=== PATIENT | male | born 1950 | race Two or more races ===

== ENCOUNTER → 2017-01-08 | Outpatient (REF) | payer OTHER ==
[2017-01-08 14:05] LABS: CALCIUM OXALATE CRYSTALS LARGE
== END ==
LOC: M SMT 13:28
PROVIDERS: ATTEND Nurse Practitioner Women's Health
DX: R97.20 Elevated prostate specific antigen [PSA] (principal)

== ENCOUNTER → 2017-02-12 | Outpatient (REF) | payer OTHER | LOC: EEVIPCON 12:52 → M LAB REF 12:52 | PROVIDERS: ATTEND Urology | DX: R97.20 Elevated prostate specific antigen [PSA] (principal) ==

== ENCOUNTER → 2017-04-30 | Outpatient (CLI) | payer OTHER ==
--- NOTE | 2017-04-30 13:00 | REP ---
Prostate sonography: History: Elevated PSA Sonographic findings: Trans rectal prostate sonography demonstrates unremarkable seminal vesicles. Prostate gland is heterogeneously enlarged with calcifications and cystic changes noted. Glandular dimensions are measured at 4.8 x 4.4 x 5.7 cm with a calculated glandular volume of 62.3 ml. There is a 0.5 cm nodule on the right side of the prostate. Transrectal sonographic guidance provided to Dr. Hughes who performed trans rectal ultrasound guided needle biopsy procedure . Signed by Mack Elias MD 04/30/2017 12:51 P
== END ==
LOC: M SMT PRO 08:16
PROVIDERS: ATTEND Urology
DX: R97.20 Elevated prostate specific antigen [PSA] (principal)
CPT/HCPCS: 76872; 76942; G0416

== ENCOUNTER → 2017-07-30 | Outpatient (CLI) | payer MEDICARE, OTHER ==
[2017-07-31 14:13] LABS: PSA % FREE 22.5 % (.); PSA FREE 1.08 ng/mL; PSA TOTAL 4.8 ng/mL (0.0-4.0)
== END ==
LOC: M SMT 09:03
DX: N41.0 Acute prostatitis (principal)
CPT/HCPCS: 84154

== ENCOUNTER → 2018-08-01 | Outpatient (CLI) | payer MEDICARE | LOC: M SMT 11:03 | PROVIDERS: ATTEND Nurse Practitioner Women's Health | DX: R97.20 Elevated prostate specific antigen [PSA] (principal) ==

== ENCOUNTER → 2019-02-10 | Outpatient (CLI) | payer MEDICARE ==
[2019-02-11 14:25] LABS: PSA TOTAL 2.8 ng/mL (0.0-4.0)
== END ==
LOC: M SMT 08:23
PROVIDERS: ATTEND Nurse Practitioner Women's Health
DX: R97.20 Elevated prostate specific antigen [PSA] (principal)

== ENCOUNTER → 2019-03-06 | Outpatient (REF) | LOC: M LAB LCGH 14:54 | PROVIDERS: ATTEND Surgery | DX: D12.3 Benign neoplasm of transverse colon (principal) ==

== ENCOUNTER → 2019-08-14 | Outpatient (REF) | payer MEDICARE ==
[2019-08-15 14:07] LABS: PSA TOTAL 2.8 ng/mL (0.0-4.0)
== END ==
LOC: M LABSMT 08:29
PROVIDERS: ATTEND Nurse Practitioner Women's Health
DX: Z12.5 Encounter for screening for malignant neoplasm of prostate (principal); N41.0 Acute prostatitis

== ENCOUNTER → 2020-02-15 | Outpatient (CLI) | payer MEDICARE | LOC: M PLALAB 08:36 | PROVIDERS: ATTEND Nurse Practitioner Women's Health | DX: R97.20 Elevated prostate specific antigen [PSA] (principal) ==

== ENCOUNTER 2020-11-12 13:19 | Observation (INO) | payer MEDICARE ==
[~2020-11-12] VITALS: Ht 177.8 cm; Wt 87.5 kg
[2020-11-12] MEDS ORDERED: FINA5TAB2 PO (13:33)
[2020-11-12] MEDS ORDERED: ATOR40TA75 PO (13:33)
[2020-11-12] MEDS ORDERED: ZYLO300T6 PO (13:33)
[2020-11-12] MEDS ORDERED: TAMS1CAP17 PO (13:33)
[2020-11-12] MEDS ORDERED: LISI20TA33 PO (13:33)
--- NOTE | 2020-11-12 14:16 | REP ---
INDICATION: DYSPNEA/COUGH. COMPARISON: None. TECHNIQUE: Portable FINDINGS: The technique utilized in obtaining the radiograph has magnified the cardiac silhouette and accentuated the interstitial markings. There are numerable pulmonary nodules of various sizes from under 1 cm to over 3 cm. These are too numerous to count or individually assess. The heart is not enlarged. There is bilateral CP angle blunting. The osseous structures are within normal limits. IMPRESSION: Numerable pulmonary nodules. Certainly pulmonary metastasis is a concern knowing that there is a differential diagnosis for multiple pulmonary nodules. This needs to be correlated clinically. Possible small bilateral pleural effusions. I have no priors for comparison. <Electronically signed by Abdoulaye Mckeon > 11/12/20 [id number]
[2020-11-12 14:45] LABS: ABG BASE EXCESS 2.5 (-2.0-2.0); ABG HCO3 24.9 MEQ/L (22.0-26.0); ABG O2 SATURATION 94.6 % (95.0-99.0); ABG PARTIAL PRESSURE O2 68.7 mmHg (75.0-100.0); ABG STANDARD HCO3 26.6 MEQ/L (22.0-26.0); ABG TOTAL CO2 25.9 MEQ/L (23.0-31.0); ABG pH (ARTERIAL) 7.509 UNITS (7.350-7.450)
[2020-11-12 15:03] LABS: BASO % 0.2 % (0.0-1.0); EOS % 0.1 % (0.0-3.0); HEMATOCRIT 40.9 % (42.0-52.0); HEMOGLOBIN 13.1 g/dl (13.5-17.5); LYMPH # 0.7 10^3/uL (1.5-5.0); LYMPH % 3.4 % (24.0-44.0); MEAN CORPUSCULAR HEMOGLOBIN 29.4 pg (27.0-33.0); MEAN CORPUSCULAR VOLUME 91.7 fl (80.0-96.0); MONO # 0.8 10^3/uL (0.0-0.8); MONO % 4.1 % (2.0-8.0); NEUTROPHILS # 17.4 10^3/uL (1.5-8.5); NEUTROPHILS % 90.7 % (36.0-66.0); PLATELET COUNT, AUTOMATED 232 10^3/uL (150-450); RED BLOOD COUNT 4.46 10^6/uL (4.30-6.10); WHITE BLOOD COUNT 19.2 10^3/uL (4.0-10.0)
--- NOTE | 2020-11-12 15:17 | REP ---
INDICATION: edema r/o DVT COMPARISON: None. TECHNIQUE: Real time compression and duplex Doppler interrogation of the bilateral lower extremity deep venous system is performed. Compression ultrasound is performed of the bilateral peroneal and posterior tibial veins. FINDINGS: Bilaterally, the common femoral, superficial femoral and popliteal veins are fully compressible with transducer pressure and demonstrate normal spontaneous and phasic flow, without evidence of deep venous thrombosis. No thrombus is seen in the bilateral visualized portions of the peroneal and posterior tibial veins. The peroneal veins are not well visualized due to patient body habitus. IMPRESSION: No evidence of deep venous thrombosis of the bilateral lower extremity femoral popliteal venous system. <Electronically signed by Fabien Kirkpatrick > 11/12/20 [id number]
[2020-11-12 15:23] LABS: BLOOD UREA NITROGEN 16 MG/DL (7-18); CALCIUM LEVEL 9.2 MG/DL (8.8-10.2); CARBON DIOXIDE LEVEL 30 MEQ/L (21-32); CHLORIDE LEVEL 106 MEQ/L (98-107); CK-MB VALUE MASS < 1.0 NG/ML (<3.6); CPK CREATINE PHOSPHOKINASE 34 U/L (39-308); CREATININE FOR GFR 0.93 MG/DL (0.70-1.30); GLOMERULAR FILTRATION RATE > 60.0 (>49); GLUCOSE, FASTING 120 MG/DL (70-100); MB/CK RELATIVE INDEX 2.94 (< OR =4); POTASSIUM SERUM 3.2 MEQ/L (3.5-5.1); SODIUM LEVEL 141 MEQ/L (136-145); TROPONIN I < 0.02 NG/ML (< 0.10)
[2020-11-12 15:33] LABS: ALBUMIN 2.7 GM/DL (3.2-5.2); BILIRUBIN,DIRECT 0.2 MG/DL (0.0-0.2); BILIRUBIN,TOTAL 0.4 MG/DL (0.2-1.0); THYROID STIMULATING HORMONE 8.42 uIU/ML (0.358-3.740); TOTAL PROTEIN 6.3 GM/DL (6.4-8.2)
[2020-11-12] MEDS ORDERED: ISOVUE-370 76% 100ML VIAL As Ordered ONE (16:13)
--- NOTE | 2020-11-12 17:07 | REP ---
INDICATION: SOB COMPARISON: None. TECHNIQUE: CT angiography of the chest attention pulmonary arteries after the intravenous administration of 75 cc of Isovue 370. FINDINGS: There is excellent visualization of the pulmonary arterial vasculature. There are no focal filling defects present that would be considered consistent with acute pulmonary emboli. There is bilateral hilar adenopathy. There is mediastinal adenopathy. There is small bilateral pleural effusions. There is a small pericardial effusion. The imaged upper abdomen is within normal limits. The imaged osseous structures are within normal limits. Evaluation of the lung tom shows numerous pulmonary nodules of various sizes from under 1 cm up to slightly larger than 3 cm. IMPRESSION: 1. There is no evidence of an acute pulmonary embolus. 2. Mediastinal and hilar adenopathy. 3. Numerous noncalcified pulmonary nodules as described above. Metastatic versus non malignant neoplastic disease. Since there is a vast differential diagnosis for multiple pulmonary nodules clinical correlation is necessary. <Electronically signed by Abdoulaye Mckeon > 11/12/20 [id number]
[2020-11-12] MEDS ORDERED: POTASSIUM CHLORIDE 10 MEQ SR TABLET PO ONE (17:30)
[2020-11-12] MEDS ORDERED: LABETALOL 100MG/20ML VIAL IV STA (17:40)
[2020-11-12] MEDS ORDERED: MOM 30ML SUSPENSION UDC PO PRN (19:00)
[2020-11-12] MEDS ORDERED: MAALOX 30 ML SUSP *UDC PO PRN (19:00)
[2020-11-12] MEDS ORDERED: ACETAMINOPHEN TAB 650MG DOSE (2X325MG) PO PRN (19:00)
--- NOTE | 2020-11-12 19:28 | HPEPDOC ---
[facility] Medical History & Physical Date of Admission Nov 12, 2020 Date of Service: Nov 12, 2020 Attending Physician: SARABJIT TORRES History and Physical CHIEF COMPLAINT: Shortness of breath HISTORY OF PRESENT ILLNESS: Mr. Larsen is a 70-year-old male who presents to the ER this evening with complaints of worsening shortness of breath over the left 2-1/2 weeks. It has been much worse over the last 2 nights. He also reports a history of dry, nonproductive cough for about 1-1/2 months. He has a history of melanoma with metastasis to lung, bone and liver. He was originally diagnosed with melanoma on his back in December of last year. He had the area removed but had difficulty healing. It sounds like care might have been delayed because of cocaine. He was eventually taken back to surgery in July for significant debridement of this area. He was considered cancer free with lymph nodes negative for metastasis at that time. However, he became increasingly short of breath and was seen at an outside facility ER. He followed up with [place] for continued evaluation and was found to have the metastasis. He was referred to [place] and now has an appointment scheduled with [facility] for repeat biopsy and possible treatment with immunotherapy. He was supposed to have had that appointment yesterday but it was canceled as his insurance has not yet approved for biopsy and treatment. On initial evaluation this evening. He was noted to have an O2 sat of 95% on room air, but PO2 was 68%. His PCO2 was 32. He was slightly alkalotic with pH of 7.5. . He also had elevated blood pressure 179/97 and was given a dose of labetalol in the ER.. Labs were significant for an elevated white count at 19.2. Potassium was decreased at 3.2 and he was given 40 mEq potassium in the ER. BUN/creatinine were within normal limits. He did have elevation of BNP at 1232. Protein and albumin were decreased at 6.3 and 2.7. His TSH was elevated at 8.4 with no history of thyroid disease. He was negative for cuff at 19 and has been fully vaccinated. He was positive for human rhinovirus/enterovirus. Bilateral lower extremity ultrasound was negative and was done because the patient complained of swelling in the right lower extremity. CT of the chest showed no evidence of pulmonary embolus but did show mediastinal and hilar adenopathy. There are also numerous noncalcified pulmonary nodules with known metastasis. Chest x-ray also showed innumerable pulmonary nodules and possible small bilateral pleural effusions. The ER provider, Dr. Richard, spoke with [place] [facility]. They apparently recommended admission with echocardiogram. PAST MEDICAL HISTORY: 1. Benign prostatic hypertrophy. 2. Hypertension. 3. Hyperlipidemia. 4. Kidney stone. 5. Gout. 6. Melanoma with known metastasis to lung, bone and liver. PAST SURGICAL HISTORY: 1. Left forearm surgery. 2. Removal of melanoma on the back. 3. Repeat debridement of melanoma on the back SOCIAL HISTORY: Tobacco use:, None ETOH:. Patient admits to drinking about 2 drinks a day but states it is not every day Illicit drug use: None Patient lives with: Patient lives alone FAMILY HISTORY: Patient's mother in her early 40s from breast cancer. His father was 74 and had a history of coronary artery disease and hypertension. REVIEW OF SYSTEMS: Complete 10 point review systems is negative except as noted above PHYSICAL EXAMINATION: Patient is seen in the ER, sitting Up on the stretcher. He is alert and oriented 3. HEENT is unremarkable. Neck supple without adenopathy. Lungs are clear to auscultation, but he does have a dry nonproductive cough. Heart regular rate and rhythm without murmur. Abdomen is obese, soft, nontender to percussion and palpation with bowel sounds positive. Extremities with good range of motion. Strength equal bilaterally. He does have 1+ pitting edema in the right lower extremity and trace edema in the left lower extremity. Pedal pulses positive. Skin is warm and dry. He has a large scar in the mid back with a small area of eschar at the center. There is no erythema, drainage or warmth. Nontender to touch. Neuro: Grossly intact. Psych: He is very pleasant and cooperative. ASSESSMENT AND PLAN: 1. Acute congestive heart failure with elevated BNP and bilateral pleural effusions. Will monitor intake and output closely. Check echocardiogram in the morning. Will give 1 dose of Lasix now. 2. Hypertension, essential. Continue home lisinopril and monitor with routine vital signs. Will adjust medications as needed based on trends. 3. Abnormal TSH with no history of thyroid disease. Will check free T4. Will start the patient on hormone replacement. He will need to follow-up with primary care provider in 4-6 weeks for continued management. 4. Shortness of breath with acute rhinovirus/enterovirus. Continue supportive care. Oxygen available as needed and will titrate to keep sats greater than 92%. Will add Tessalon Perles. 5. Hypokalemia. Patient received 40 mEq in the ER. Recheck labs in the morning. 6. Hyperlipidemia. Continue statin. 7. Gout. Will continue home allopurinol. 8. Benign prostatic hypertrophy. Continue Flomax and Proscar. Monitor intake and output. 9. DVT prophylaxis. Will add Lovenox. CODE STATUS: CODE STATUS was discussed with the patient. He desires to be co nsidered full code. He states his children, ankle, and Khris, would act as his circuits. If you are unable to make his decisions. Patient is considered high risk for further deterioration including worsening hypoxia or respiratory failure. He is admitted for close observation and further evaluation and expected to remain at least one midnight. Vital Signs Vital Signs Date Time Temp Pulse Resp B/P (MAP) Pulse Ox O2 Delivery O2 Flow Rate FiO2 11/12/20 19:00 100 151/91 (111) 94 11/12/20 13:20 98.2 22 Room Air Laboratory Data Labs 24H Laboratory Tests 2 11/12/20 14:30: Immature Granulocyte % (Auto) 1.5, Neutrophils (%) (Auto) 90.7H, Lymphocytes (%) (Auto) 3.4L, Monocytes (%) (Auto) 4.1, Eosinophils (%) (Auto) 0.1, Basophils (%) (Auto) 0.2, Neutrophils # (Auto) 17.4H, Lymphocytes # (Auto) 0.7L, Monocytes # (Auto) 0.8, Eosinophils # (Auto) 0.0, Basophils # (Auto) 0.0, Nucleated Red Blood Cells % (auto) 0.0, Blood Gas Bicarbonate Standard 26.6H, Arterial Blood pH 7.509H, Arterial Blood Partial Pressure CO2 32.0L, Arterial Blood Partial Pressure O2 68.7L, Arterial Blood Total CO2 25.9, Arterial Blood HCO3 24.9, Arterial Blood Base Excess 2.5H, Arterial Blood Oxygen Saturation 94.6L, Total Bilirubin 0.4, Direct Bilirubin 0.2, Aspartate Amino Transf (AST/SGOT) 28, Alanine Aminotransferase (ALT/SGPT) 38, Alkaline Phosphatase 157H, JE-Yjm-A-Type Natriuretic Peptide 1232H, Total Protein 6.3L, Albumin 2.7L, Albumin/Globulin Ratio 0.8, Thyroid Stimulating Hormone (TSH) 8.420H 11/12/20 14:35: Anion Gap 5L, Glomerular Filtration Rate > 60.0, Calcium Level 9.2, Total Creatine Kinase 34L, Creatine Kinase MB < 1.0, Creatine Kinase MB Relative Index 2.94, Troponin I < 0.02 CBC/BMP Laboratory Tests 11/12/20 14:30 11/12/20 14:35 Microbiology Microbiology 11/12/20 Blood Culture, Received Pending 11/12/20 Respiratory Virus Panel (PCR) ([facility]) - Final, Complete Human Rhinovirus/Enterovirus 11/12/20 Blood Culture, Received Pending Home Medications Scheduled Allopurinol (Zyloprim) 300 Mg Tablet, 300 MG PO DAILY Atorvastatin Calcium (Atorvastatin Calcium) 40 Mg Tablet, 40 MG PO QHS Finasteride (Finasteride) 5 Mg Tablet, 5 MG PO DAILY Lisinopril (Lisinopril) 20 Mg Tablet, 20 MG PO DAILY Tamsulosin Hcl (Tamsulosin HCl) 0.4 Mg Capsule, 0.4 MG PO DAILY Allergies Coded Allergies: sulfamethoxazole (Verified Adverse Reaction, Mild, dizzy, 11/12/20) trimethoprim (Verified Adverse Reaction, Mild, dizzy, 11/12/20) A-FIB/CHADSVASC A-FIB History Current/History of A-Fib/PAF?: No Current PO Anticoag Therapy: No Age/Risk Factor Scoring CHADSVASC: CHADSVASC Response (Comments) Value Age Risk Factor Age < 65 years old 0 Gender Risk Factor Male 0 Hx of CHF No 0 Hx of HTN Yes 1 Hx of Stroke/TIA/or VTE No 0 Hx of Diabetes No 0 Hx of Vascular Disease No 0 Total 1 Treatment Treatment ordered: NONE SARABJIT TORRES Nov 12, 2020 19:28
[2020-11-12] MEDS ORDERED: guaiFENesin SYRUP 200 MG/10 ML UDC PO PRN (19:30)
[2020-11-12] MEDS ORDERED: BENZONATATE 100 MG CAP PO PRN (19:30)
[2020-11-12] MEDS ORDERED: FUROSEMIDE 40MG/4ML VIAL (J1940) IV ONE (20:00)
[2020-11-12 20:24] LABS: FREE T4 0.87 NG/DL (0.76-1.46)
[2020-11-12 20:35] VITALS: BP 172/88
[2020-11-12 20:48] LABS: MAGNESIUM LEVEL 2.3 MG/DL (1.8-2.4)
[2020-11-12] MEDS ORDERED: ATORVASTATIN 20 MG TAB PO SCH (21:00)
--- NOTE | 2020-11-12 21:09 | ECGEPIP ---
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
[2020-11-12 21:21] VITALS: BP 139/83
[2020-11-12] MEDS ORDERED: SLF 3 ML SYR IV PRN (21:25)
[2020-11-12] MEDS: SLF 3 ML SYR IV SCH (21:52)
[2020-11-13 00:43] VITALS: BP 143/81
[2020-11-13] MEDS: POTASSIUM CHLORIDE 10 MEQ SR TABLET PO SCH ×2 (03:10→06:24)
[2020-11-13 04:00] VITALS: BP 166/92
[2020-11-13 05:37] LABS: HEMATOCRIT 36.7 % (42.0-52.0); HEMOGLOBIN 11.8 g/dl (13.5-17.5); MEAN CORPUSCULAR HEMOGLOBIN 29.3 pg (27.0-33.0); MEAN CORPUSCULAR HGB CONC 32.2 g/dl (32.0-36.5); MEAN CORPUSCULAR VOLUME 91.1 fl (80.0-96.0); PLATELET COUNT, AUTOMATED 228 10^3/uL (150-450); RED BLOOD COUNT 4.03 10^6/uL (4.30-6.10)
[2020-11-13] MEDS ORDERED: LEVOTHYROXINE 50MCG TABLET (0.05MG) PO SCH (06:00)
[2020-11-13 06:02] LABS: ALBUMIN 2.2 GM/DL (3.2-5.2); ALT/SGPT 31 U/L (12-78); BILIRUBIN,TOTAL 0.4 MG/DL (0.2-1.0); BLOOD UREA NITROGEN 18 MG/DL (7-18); CALCIUM LEVEL 8.1 MG/DL (8.8-10.2); CARBON DIOXIDE LEVEL 29 MEQ/L (21-32); CHLORIDE LEVEL 106 MEQ/L (98-107); CREATININE FOR GFR 1.04 MG/DL (0.70-1.30); GLOMERULAR FILTRATION RATE > 60.0 (>49); GLUCOSE, FASTING 125 MG/DL (70-100); POTASSIUM SERUM 3.5 MEQ/L (3.5-5.1); SODIUM LEVEL 141 MEQ/L (136-145); TOTAL PROTEIN 5.6 GM/DL (6.4-8.2)
[2020-11-13] MEDS: SLF 3 ML SYR IV SCH ×2 (06:24→13:59)
[2020-11-13 07:30] VITALS: BP 158/84
[2020-11-13] MEDS ORDERED: allopurinoL 300 MG TAB PO SCH (09:00)
[2020-11-13] MEDS ORDERED: TAMSULOSIN 0.4 MG CAP PO SCH (09:00)
[2020-11-13] MEDS ORDERED: FINASTERIDE 5 MG TAB PO SCH (09:00)
[2020-11-13] MEDS ORDERED: ENOXAPARIN 40MG/0.4ML SYRINGE (J1650 PER 10MG) SC SCH (09:00)
[2020-11-13 09:23] VITALS: BP 158/84
--- NOTE | 2020-11-13 10:06 | IPNPDOC ---
Text Note Date of Service The patient was seen on 11/13/20. NOTE Subjective: Patient was seen and examined this morning at bedside. He tells me he knows about his metastatic melanoma and it has progressed to the lungs and his liver he is following up with an oncologist at [facility] and is scheduled to follow-up with another oncologist closer to his home this week. He tells me his breathing feels better he is less short of breath has been able to ambulate around his room without feeling shortness of breath. He denies any fevers or chills. I discussed with him that his dyspnea was likely related to a combination of factors including his lung cancer, rhinovirus, and possibly a small component of CHF. Objective: Constitutional: Awake and alert, in no apparent distress ENT: Sclera are clear. Mucosa is moist. Respiratory: Lungs CTA bilaterally. No respiratory distress. No use of accessory muscles. Saturating well on room air Cardiovascular: RRR S1 and S2 are normal, no murmur Gastrointestinal: Abdomen is soft, non distended, non tender, BS present. Musculoskeletal: Trace bilateral pedal edema Neurologic: No focal neurological deficit. Mental Status: A&O x3, normal affect Skin: No visible rashes. Healing scar upper thoracic site of his melanoma excision. Assessment Shortness of breath likely multifactorial; rhinovirus +/- lung tumors +/- fluid overload Metastatic cancer plan Shortness of breath likely related to primarily rhinovirus infection in the setting of lung cancer (likely metastatic from melanoma) as well as mild fluid overload. He has no prior history of congestive heart failure and does not take diuretics at home. An echo was performed at bedside this morning and he should follow-up on the results with his PCP. He'll be discharged on a 1 month supply for diuresis for better optimization. With regards to his metastatic melanoma he has established care at [facility] in [place] with an oncologist and will be establishing care at an affiliated site close to his home this week. He saturating well on room air management of the rhinovirus infection supportive management. [facility] PIPER, I+O [facility] PIPER, I+O Laboratory Tests 11/12/20 14:30 11/12/20 14:35 11/13/20 00:32 11/13/20 05:15 Vital Signs Date Time Temp Pulse Resp B/P (MAP) Pulse Ox O2 Delivery O2 Flow Rate FiO2 11/13/20 09:23 158/84 11/13/20 07:30 98.3 98 18 93 Room Air I&O- Last 24 Hours up to 6 AM 11/13/20 06:00 Output Total 600 ml Balance -600 ml PENG CHASE MD Nov 13, 2020 10:06
[2020-11-13] MEDS ORDERED: LASI20TA3 PO (10:09)
[2020-11-13] MEDS ORDERED: BENZ-18 PO (10:09)
[2020-11-13] MEDS ORDERED: ACET1TAB55 PO (10:09)
--- NOTE | 2020-11-14 12:35 | ECHO ---
ECHOCARDIOGRAM DATE OF PROCEDURE: 11/13/2020 Age: 70 Gender: Height: Weight: REFERRING PROVIDER: Devika Ledesma MD. PATIENT LOCATION: Room 3215. REASON FOR THE TESTING: Shortness of breath. 2D MEASUREMENTS: IVS 1.0 cm LV 5.2 cm LVPW 0.9 cm LA 3.5 cm Aorta 3.3 cm DOPPLER MEASUREMENT Peak velocity across the LVOT 0.9 m/s 2D COMMENTS: 1. Normal left ventricular size, wall thickness, and normal global left ventricular systolic function. The estimated left ventricular systolic ejection fraction is 60 to 65%. 2. Normal left atrium. Normal right atrium and right ventricle. 3. The atrial septum appeared to be normal without evidence of defect or shunt. 4. Normal aortic root. 5. A small pericardial effusion was noted, no evidence of cardiac tamponade. 6. Mildly calcified aortic valve with normal leaflet excursion. Mildly calcified mitral annulus with normal anterior mitral valve leaflet motion. Normal tricuspid valve. The pulmonic valve was not well visualized as well as the proximal pulmonary artery branches. 7. The inferior vena cava was not visualized. DOPPLER: No significant valvular abnormalities detected but trace aortic regurgitation and trace tricuspid regurgitation. Pulmonary artery systolic pressure is probably normal. IMPRESSION: 1. Normal global left ventricular systolic function. Not mentioned above, there are findings suggestive of grade 1 left ventricular diastolic dysfunction manifested by abnormal relaxation. 2. Aortic valve sclerosis with trace aortic regurgitation. 3. A small pericardial effusion was noted, no evidence of cardiac tamponade.
== END 2020-11-13 15:02 | disposition home or self-care (01) ==
LOC: M ED 13:19 → M ED INP 13:20 → ENRESERV 19:30 → M PCU 20:35
PROVIDERS: ADMIT Internal Medicine; ATTEND Internal Medicine
DX: I50.9 Heart failure, unspecified (principal); R79.89 Other specified abnormal findings of blood chemistry; J90 Pleural effusion, not elsewhere classified; I31.3 Pericardial effusion (noninflammatory); I11.0 Hypertensive heart disease with heart failure; R94.5 Abnormal results of liver function studies; R06.02 Shortness of breath; E87.6 Hypokalemia; E78.5 Hyperlipidemia, unspecified; M79.89 Other specified soft tissue disorders; E87.70 Fluid overload, unspecified; M10.9 Gout, unspecified; N40.0 Benign prostatic hyperplasia without lower urinary tract symptoms; C79.51 Secondary malignant neoplasm of bone; C78.7 Secondary malignant neoplasm of liver and intrahepatic bile duct; C78.00 Secondary malignant neoplasm of unspecified lung; Z85.820 Personal history of malignant melanoma of skin; Z79.899 Other long term (current) drug therapy; Z88.2 Allergy status to sulfonamides
CPT/HCPCS: 36415; 71045; 71275; 80048; 80053; 80076; 82550; 82553; 82803; 83605; 83735; 83880; 84132; 84439; 84443; 84484; 85025; 85027; 87040; 87798; 93005; 93041; 93306; 93970; 96372; 96374; 96375; 99285; G0378; J1650; J1940; Q9967

== ENCOUNTER 2020-11-24 14:25 | Emergency (ER) | payer MEDICARE ==
[~2020-11-24] VITALS: Ht 177.8 cm; Wt 89.3 kg
[~2020-11-24 14:25] MED LIST: ACET1TAB55 PO; ATOR40TA75 PO; BENZ-18 PO; FINA5TAB2 PO; LASI20TA3 PO; LISI20TA33 PO; TAMS1CAP17 PO; ZYLO300T6 PO
[2020-11-24] MEDS ORDERED: POTA10CA32 (14:33)
[2020-11-24] MEDS ORDERED: HYDR-3713 (14:33)
[2020-11-24 15:09] LABS: VENOUS BASE EXCESS 4.6 (-2.0-2.0); VENOUS HCO3 27.1 MEQ/L (23.0-27.0); VENOUS O2 SATURATION 97.1 % (60.0-80.0); VENOUS PARTIAL PRESSURE CO2 33.5 mmHg (38.0-50.0); VENOUS PH 7.525 UNITS (7.330-7.430); VENOUS STANDARD HCO3 28.6 MEQ/L; VENOUS TOTAL CO2 28.1 MEQ/L (24.0-28.0)
--- NOTE | 2020-11-24 15:17 | REP ---
INDICATION: DYSPNEA/COUGH COMPARISON: 11/12/2020 TECHNIQUE: Portable AP view of the chest FINDINGS: Diffuse bilateral infiltrates along with scattered rounded pulmonary mass lesions and moderate pleural effusions are similar to prior examination. IMPRESSION: No significant change from prior examination. Diffuse bilateral airspace disease, pleural effusions, and scattered metastatic mass lesions. <Electronically signed by Jeff Boles > 11/24/20 [id number]
[2020-11-24 15:42] LABS: ALBUMIN 2.2 GM/DL (3.2-5.2); ALT/SGPT 23 U/L (12-78); BILIRUBIN,DIRECT 0.2 MG/DL (0.0-0.2); BILIRUBIN,TOTAL 0.4 MG/DL (0.2-1.0); BLOOD UREA NITROGEN 22 MG/DL (7-18); CALCIUM LEVEL 7.9 MG/DL (8.8-10.2); CARBON DIOXIDE LEVEL 28 MEQ/L (21-32); CHLORIDE LEVEL 103 MEQ/L (98-107); CK-MB VALUE MASS < 1.0 NG/ML (<3.6); CPK CREATINE PHOSPHOKINASE 30 U/L (39-308); CREATININE FOR GFR 0.94 MG/DL (0.70-1.30); GLOMERULAR FILTRATION RATE > 60.0 (>49); GLUCOSE, FASTING 128 MG/DL (70-100); MB/CK RELATIVE INDEX 3.33 (< OR =4); POTASSIUM SERUM 3.8 MEQ/L (3.5-5.1); SODIUM LEVEL 141 MEQ/L (136-145); TOTAL PROTEIN 5.9 GM/DL (6.4-8.2); TROPONIN I < 0.02 NG/ML (< 0.10)
[2020-11-24 15:50] LABS: RSV AMPLIFICATION NEGATIVE (NEGATIVE)
[2020-11-24 16:18] LABS: BASO % 0.2 % (0.0-1.0); HEMATOCRIT 39.1 % (42.0-52.0); HEMOGLOBIN 12.1 g/dl (13.5-17.5); LYMPH # 0.9 10^3/uL (1.5-5.0); LYMPH % 4.4 % (24.0-44.0); MEAN CORPUSCULAR HEMOGLOBIN 28.1 pg (27.0-33.0); MEAN CORPUSCULAR HGB CONC 30.9 g/dl (32.0-36.5); MEAN CORPUSCULAR VOLUME 90.9 fl (80.0-96.0); MONO # 0.8 10^3/uL (0.0-0.8); MONO % 3.6 % (2.0-8.0); NEUTROPHILS # 19.1 10^3/uL (1.5-8.5); NEUTROPHILS % 89.9 % (36.0-66.0); PLATELET COUNT, AUTOMATED 169 10^3/uL (150-450); WHITE BLOOD COUNT 21.2 10^3/uL (4.0-10.0)
[2020-11-24 17:15] VITALS: BP 158/91
[2020-11-24] MEDS ORDERED: TUSS1CAP5 PO ×2 (17:19→17:23)
--- NOTE | 2020-11-24 21:17 | ECGEPIP ---
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
[2020-11-25] MEDS ORDERED: TESS100C PO (09:50)
== END 2020-11-24 17:42 | disposition home or self-care (01) ==
LOC: M ED 14:25
DX: R05 Cough (principal); R06.02 Shortness of breath; I10 Essential (primary) hypertension; E78.5 Hyperlipidemia, unspecified; C43.9 Malignant melanoma of skin, unspecified; C78.00 Secondary malignant neoplasm of unspecified lung; Z79.899 Other long term (current) drug therapy; Z88.2 Allergy status to sulfonamides; Z88.8 Allergy status to other drugs, medicaments and biological substances

== ENCOUNTER 2020-12-04 10:17 | Inpatient (IN) | payer MEDICARE ==
[~2020-12-04] VITALS: Ht 177.8 cm; Wt 89.1 kg
[~2020-12-04 10:17] MED LIST changes: +HYDR-3713; +POTA10CA32 PO; +TESS100C PO; +TUSS1CAP5 PO
[2020-12-04] MEDS ORDERED: FUROSEMIDE 40MG/4ML VIAL (J1940) IV ONE (12:05)
[2020-12-04 12:56] LABS: RSV AMPLIFICATION NEGATIVE (NEGATIVE)
[2020-12-04 13:07] LABS: BASO % 0.1 % (0.0-1.0); EOS % 0.1 % (0.0-3.0); HEMATOCRIT 34.6 % (42.0-52.0); LYMPH # 0.9 10^3/uL (1.5-5.0); LYMPH % 4.6 % (24.0-44.0); MEAN CORPUSCULAR HEMOGLOBIN 27.9 pg (27.0-33.0); MEAN CORPUSCULAR HGB CONC 31.8 g/dl (32.0-36.5); MEAN CORPUSCULAR VOLUME 87.8 fl (80.0-96.0); MONO # 0.8 10^3/uL (0.0-0.8); MONO % 4.1 % (2.0-8.0); NEUTROPHILS # 17.2 10^3/uL (1.5-8.5); NEUTROPHILS % 88.9 % (36.0-66.0); PLATELET COUNT, AUTOMATED 122 10^3/uL (150-450); RED BLOOD COUNT 3.94 10^6/uL (4.30-6.10); WHITE BLOOD COUNT 19.3 10^3/uL (4.0-10.0)
[2020-12-04 13:38] LABS: ALBUMIN 1.9 GM/DL (3.2-5.2); ALT/SGPT 17 U/L (12-78); BILIRUBIN,DIRECT 0.2 MG/DL (0.0-0.2); BILIRUBIN,TOTAL 0.5 MG/DL (0.2-1.0); BLOOD UREA NITROGEN 24 MG/DL (7-18); CALCIUM LEVEL 8.2 MG/DL (8.8-10.2); CARBON DIOXIDE LEVEL 27 MEQ/L (21-32); CHLORIDE LEVEL 105 MEQ/L (98-107); CK-MB VALUE MASS < 1.0 NG/ML (<3.6); CPK CREATINE PHOSPHOKINASE 24 U/L (39-308); CREATININE FOR GFR 0.97 MG/DL (0.70-1.30); FREE T4 0.75 NG/DL (0.76-1.46); GLOMERULAR FILTRATION RATE > 60.0 (>49); GLUCOSE, FASTING 119 MG/DL (70-100); MB/CK RELATIVE INDEX 4.17 (< OR =4); NT-PRO BNP 1784 PG/ML (<125); POTASSIUM SERUM 3.8 MEQ/L (3.5-5.1); SODIUM LEVEL 142 MEQ/L (136-145); TOTAL PROTEIN 5.9 GM/DL (6.4-8.2); TROPONIN I < 0.02 NG/ML (< 0.10)
[2020-12-04] MEDS ORDERED: TESS100C PO (14:11)
[2020-12-04] MEDS ORDERED: APAP500T10 PO (14:11)
[2020-12-04] MEDS ORDERED: ALLO10TA PO (14:11)
[2020-12-04] MEDS ORDERED: FURO20TA2 PO (14:11)
[2020-12-04] MEDS ORDERED: HOME MED LIST COMPLETE! XX SCH (14:15)
[2020-12-04] MEDS ORDERED: MAALOX 30 ML SUSP *UDC PO PRN (14:30)
[2020-12-04] MEDS ORDERED: BENZONATATE 100MG CAPSULE PO PRN (14:30)
[2020-12-04 16:15] LABS: APPEARANCE, BODY FLUID HAZY (CLEAR); ASCITES FL COLOR YELLOW (COLORLESS); SOURCE, BODY FLUID ASCITES; SPEC. GRAVITY BODY FLUIDS 1.016 (NOT ESTABLISHED)
[2020-12-04 16:29] LABS: SOURCE, BODY FLUID ALBUMIN ASCITES; SOURCE, BODY FLUID GLUCOSE ASCITES; SOURCE, BODY FLUID TOT PROTEIN ASCITES; TOTAL PROTEIN, BODY FLUID 2.1 G/DL (NOT ESTABLISHED)
[2020-12-04] MEDS ORDERED: cefTRIAXone SOD 1 GM in D5W MINI-BAG PLUS 50 ML IV SCH (18:00)
[2020-12-04] MEDS: TAMSULOSIN 0.4 MG CAP PO SCH (18:07)
[2020-12-04] MEDS: FINASTERIDE 5 MG TAB PO SCH (18:07)
[2020-12-04] MEDS: allopurinoL 100 MG TAB PO SCH (18:07)
[2020-12-04] MEDS ORDERED: FUROSEMIDE 40MG/4ML VIAL (J1940) IV SCH (20:00)
[2020-12-04] MEDS: POTASSIUM CHLORIDE 10MEQ SR TABLET PO SCH (21:21)
[2020-12-04] MEDS: ATORVASTATIN 20 MG TAB PO SCH (21:21)
[2020-12-05] VITALS (25 sets, daily range): BP systolic 88–160; BP diastolic 52–87; O2SAT 89–97
[2020-12-05] MEDS: ACETAMINOPHEN TAB 650MG DOSE (2X325MG) PO PRN ×4 (00:12→18:12)
[2020-12-05 06:19] LABS: HEMATOCRIT 33.5 % (42.0-52.0); HEMOGLOBIN 10.3 g/dl (13.5-17.5); MEAN CORPUSCULAR HEMOGLOBIN 27.5 pg (27.0-33.0); MEAN CORPUSCULAR HGB CONC 30.7 g/dl (32.0-36.5); MEAN CORPUSCULAR VOLUME 89.3 fl (80.0-96.0); PLATELET COUNT, AUTOMATED 113 10^3/uL (150-450); RED BLOOD COUNT 3.75 10^6/uL (4.30-6.10)
[2020-12-05 06:42] LABS: ALBUMIN 1.6 GM/DL (3.2-5.2); ALT/SGPT 13 U/L (12-78); BILIRUBIN,TOTAL 0.4 MG/DL (0.2-1.0); BLOOD UREA NITROGEN 25 MG/DL (7-18); CALCIUM LEVEL 8.1 MG/DL (8.8-10.2); CARBON DIOXIDE LEVEL 26 MEQ/L (21-32); CHLORIDE LEVEL 104 MEQ/L (98-107); CREATININE FOR GFR 1.14 MG/DL (0.70-1.30); GLOMERULAR FILTRATION RATE > 60.0 (>49); GLUCOSE, FASTING 106 MG/DL (70-100); MAGNESIUM LEVEL 1.9 MG/DL (1.8-2.4); POTASSIUM SERUM 3.9 MEQ/L (3.5-5.1); SODIUM LEVEL 141 MEQ/L (136-145); TOTAL PROTEIN 5.9 GM/DL (6.4-8.2)
[2020-12-05] MEDS: allopurinoL 100 MG TAB PO SCH (08:16)
[2020-12-05] MEDS: ENOXAPARIN 40MG/0.4ML SYRINGE (J1650 PER 10MG) SC SCH (08:16)
[2020-12-05] MEDS ORDERED: FUROSEMIDE 40MG/4ML VIAL (J1940) IV SCH (09:00)
[2020-12-05] MEDS ORDERED: VANCOMYCIN HCL 1,000 MG, VIAL MATE ADAPTER 1 EACH in NS 250 ML IV SCH ×2 (09:45→13:00)
[2020-12-05] MEDS ORDERED: PIPERACILLIN/TAZOBACTAM SOD 3.375 GM in D5W MINI-BAG PLUS 50 ML IV SCH (11:00)
[2020-12-05] MEDS ORDERED: VANCOMYCIN HCL 1,000 MG, VIAL MATE ADAPTER 1 EACH in NS 250 ML IV ONE ×2 (12:00→13:20)
[2020-12-05] MEDS: TAMSULOSIN 0.4 MG CAP PO SCH (12:24)
[2020-12-05] MEDS: FINASTERIDE 5 MG TAB PO SCH (12:24)
[2020-12-05] MEDS ORDERED: NS 1,000 ML IV ONE (13:40)
[2020-12-05] MEDS ORDERED: PIPERACILLIN/TAZOBACTAM SOD 4.5 GM in D5W MINI-BAG PLUS 50 ML IV SCH (17:00)
[2020-12-05] MEDS: PIPERACILLIN/TAZOBACTAM SOD 4.5 GM in D5W MINI-BAG PLUS 50 ML IV SCH ×2 (17:25→23:11)
[2020-12-05] MEDS: POTASSIUM CHLORIDE 10MEQ SR TABLET PO SCH (20:42)
[2020-12-05] MEDS: ATORVASTATIN 20 MG TAB PO SCH (20:42)
[2020-12-06] VITALS (20 sets, daily range): BP systolic 103–126; BP diastolic 61–78; O2SAT 91–94
[2020-12-06] MEDS ORDERED: VANCOMYCIN HCL 1,000 MG, VIAL MATE ADAPTER 1 EACH in NS 250 ML IV SCH ×3
[2020-12-06] MEDS: ACETAMINOPHEN TAB 650MG DOSE (2X325MG) PO PRN (00:12)
[2020-12-06] MEDS: PIPERACILLIN/TAZOBACTAM SOD 4.5 GM in D5W MINI-BAG PLUS 50 ML IV SCH ×4 (04:48→23:32)
[2020-12-06 07:38] LABS: BASO % 0.2 % (0.0-1.0); HEMATOCRIT 31.7 % (42.0-52.0); HEMOGLOBIN 9.9 g/dl (13.5-17.5); LYMPH # 0.9 10^3/uL (1.5-5.0); LYMPH % 7.1 % (24.0-44.0); MEAN CORPUSCULAR HEMOGLOBIN 27.3 pg (27.0-33.0); MEAN CORPUSCULAR HGB CONC 31.2 g/dl (32.0-36.5); MEAN CORPUSCULAR VOLUME 87.6 fl (80.0-96.0); MONO # 0.4 10^3/uL (0.0-0.8); MONO % 3.5 % (2.0-8.0); NEUTROPHILS # 10.7 10^3/uL (1.5-8.5); NEUTROPHILS % 85.6 % (36.0-66.0); PLATELET COUNT, AUTOMATED 108 10^3/uL (150-450); RED BLOOD COUNT 3.62 10^6/uL (4.30-6.10); WHITE BLOOD COUNT 12.5 10^3/uL (4.0-10.0)
[2020-12-06 07:57] LABS: CALCIUM LEVEL 7.1 MG/DL (8.8-10.2); CREATININE FOR GFR 1.46 MG/DL (0.70-1.30); GLOMERULAR FILTRATION RATE 51.1 (>49); POTASSIUM SERUM 3.3 MEQ/L (3.5-5.1)
[2020-12-06] MEDS ORDERED: POTASSIUM CHLORIDE 10MEQ SR TABLET PO ONE (08:30)
[2020-12-06] MEDS: allopurinoL 100 MG TAB PO SCH (09:58)
[2020-12-06] MEDS: ENOXAPARIN 40MG/0.4ML SYRINGE (J1650 PER 10MG) SC SCH (09:59)
[2020-12-06 11:42] LABS: VANCOMYCIN LEVEL TROUGH 16.8 UG/ML (10.0-20.0)
[2020-12-06] MEDS: TAMSULOSIN 0.4 MG CAP PO SCH (12:10)
[2020-12-06] MEDS: VANCOMYCIN HCL 750 MG, VIAL MATE ADAPTER 1 EACH in NS 250 ML IV SCH ×2 (12:10→23:18)
[2020-12-06] MEDS: FINASTERIDE 5 MG TAB PO SCH (12:10)
[2020-12-06 15:03] LABS: CALCIUM LEVEL 7.9 MG/DL (8.8-10.2); CREATININE FOR GFR 1.33 MG/DL (0.70-1.30); GLOMERULAR FILTRATION RATE 56.9 (>49); POTASSIUM SERUM 3.6 MEQ/L (3.5-5.1)
[2020-12-06] MEDS ORDERED: FUROSEMIDE 40MG/4ML VIAL (J1940) IV ONE (15:35)
[2020-12-06] MEDS: ATORVASTATIN 20 MG TAB PO SCH (22:03)
[2020-12-06] MEDS: POTASSIUM CHLORIDE 10MEQ SR TABLET PO SCH (22:03)
[2020-12-07] VITALS (9 sets, daily range): BP systolic 101–125; BP diastolic 55–84
[2020-12-07] MEDS: VANCOMYCIN HCL 750 MG, VIAL MATE ADAPTER 1 EACH in NS 250 ML IV SCH (00:24)
[2020-12-07] MEDS: PIPERACILLIN/TAZOBACTAM SOD 4.5 GM in D5W MINI-BAG PLUS 50 ML IV SCH ×2 (05:26→11:16)
[2020-12-07 06:23] LABS: HEMATOCRIT 28.5 % (42.0-52.0); HEMOGLOBIN 8.8 g/dl (13.5-17.5); MEAN CORPUSCULAR HEMOGLOBIN 27.1 pg (27.0-33.0); MEAN CORPUSCULAR HGB CONC 30.9 g/dl (32.0-36.5); MEAN CORPUSCULAR VOLUME 87.7 fl (80.0-96.0); PLATELET COUNT, AUTOMATED 103 10^3/uL (150-450); RED BLOOD COUNT 3.25 10^6/uL (4.30-6.10); WHITE BLOOD COUNT 11.3 10^3/uL (4.0-10.0)
[2020-12-07 06:50] LABS: CALCIUM LEVEL 7.1 MG/DL (8.8-10.2); CREATININE FOR GFR 1.39 MG/DL (0.70-1.30); GLOMERULAR FILTRATION RATE 54.1 (>49)
[2020-12-07] MEDS ORDERED: FUROSEMIDE 40MG/4ML VIAL (J1940) IV ONE (09:00)
[2020-12-07] MEDS: ENOXAPARIN 40MG/0.4ML SYRINGE (J1650 PER 10MG) SC SCH (09:37)
[2020-12-07] MEDS: allopurinoL 100 MG TAB PO SCH (09:37)
[2020-12-07] MEDS: POTASSIUM CHLORIDE 10MEQ SR TABLET PO SCH ×3 (09:37→12:06)
[2020-12-07] MEDS: TAMSULOSIN 0.4 MG CAP PO SCH (11:16)
[2020-12-07] MEDS: FINASTERIDE 5 MG TAB PO SCH (11:16)
[2020-12-07] MEDS: ceFAZolin SOD 2 GM in IV 1 EA IV SCH ×2 (13:13→22:08)
[2020-12-07 16:35] LABS: CALCIUM LEVEL 7.5 MG/DL (8.8-10.2); CREATININE FOR GFR 1.5 MG/DL (0.70-1.30); GLOMERULAR FILTRATION RATE 49.5 (>49); POTASSIUM SERUM 3.4 MEQ/L (3.5-5.1)
[2020-12-07] MEDS ORDERED: POTASSIUM CHLORIDE 10MEQ SR TABLET PO ONE (18:00)
[2020-12-07] MEDS ORDERED: FUROSEMIDE injection 250 MG in D5W 225 ML IV SCH (20:00)
[2020-12-07] MEDS: ATORVASTATIN 20 MG TAB PO SCH (22:08)
[2020-12-07] MEDS: ACETAMINOPHEN TAB 650MG DOSE (2X325MG) PO PRN (22:15)
[2020-12-08] VITALS (7 sets, daily range): BP systolic 107–131; BP diastolic 70–84; O2SAT 93–98
[2020-12-08] MEDS: ACETAMINOPHEN TAB 650MG DOSE (2X325MG) PO PRN ×2 (03:58→12:08)
[2020-12-08] MEDS: ceFAZolin SOD 2 GM in IV 1 EA IV SCH ×2 (04:52→12:02)
[2020-12-08 06:07] LABS: HEMATOCRIT 31.5 % (42.0-52.0); HEMOGLOBIN 9.7 g/dl (13.5-17.5); MEAN CORPUSCULAR HEMOGLOBIN 26.7 pg (27.0-33.0); MEAN CORPUSCULAR HGB CONC 30.8 g/dl (32.0-36.5); MEAN CORPUSCULAR VOLUME 86.8 fl (80.0-96.0); PLATELET COUNT, AUTOMATED 102 10^3/uL (150-450); RED BLOOD COUNT 3.63 10^6/uL (4.30-6.10); WHITE BLOOD COUNT 12.6 10^3/uL (4.0-10.0)
[2020-12-08 06:35] LABS: CALCIUM LEVEL 7.8 MG/DL (8.8-10.2); CREATININE FOR GFR 1.4 MG/DL (0.70-1.30); GLOMERULAR FILTRATION RATE 53.7 (>49); MAGNESIUM LEVEL 1.9 MG/DL (1.8-2.4); POTASSIUM SERUM 3.3 MEQ/L (3.5-5.1)
[2020-12-08] MEDS: allopurinoL 100 MG TAB PO SCH (08:34)
[2020-12-08] MEDS: ENOXAPARIN 40MG/0.4ML SYRINGE (J1650 PER 10MG) SC SCH (08:34)
[2020-12-08] MEDS ORDERED: ONDANSETRON 4MG/2ML VIAL IV PRN (08:40)
[2020-12-08] MEDS ORDERED: POTASSIUM CHLORIDE 10MEQ SR TABLET PO SCH (09:00)
[2020-12-08] MEDS ORDERED: SPIRONOLACTONE 50 MG TAB PO SCH (09:00)
[2020-12-08] MEDS: TAMSULOSIN 0.4 MG CAP PO SCH (11:57)
[2020-12-08] MEDS: FINASTERIDE 5 MG TAB PO SCH (11:57)
[2020-12-08] MEDS ORDERED: ATROPINE SULFATE 1% OP SOLN 2 ML BTL SL PRN (12:40)
[2020-12-08] MEDS ORDERED: HYOSCYAMINE SULFATE 0.125 MG SUBL TABLET PO PRN (12:40)
[2020-12-08] MEDS ORDERED: SCOPOLAMINE 1MG TRANSDERMAL PATCH TOP PRN (12:40)
[2020-12-08] MEDS ORDERED: BISACODYL 10 MG SUPP PR PRN (12:40)
[2020-12-08] MEDS ORDERED: FLEET ENEMA PR PRN (12:40)
[2020-12-08] MEDS: MORPHINE 10MG/0.5ML ORAL CONCENTRATE SOLUTION U/D SL PRN ×4 (16:45→23:52)
[2020-12-09] MEDS: ONDANSETRON 4 MG ORAL DISINTEGRATING TAB PO PRN ×3 (01:31→17:34)
[2020-12-09] MEDS: LORazepam 1 MG TAB PO PRN ×3 (04:58→17:34)
[2020-12-09] MEDS: MORPHINE 10MG/0.5ML ORAL CONCENTRATE SOLUTION U/D SL PRN ×3 (11:31→17:34)
[2020-12-09] MEDS ORDERED: ONDA4TAB6 PO (13:59)
[2020-12-09] MEDS ORDERED: FLEEENE12 PR (13:59)
[2020-12-09] MEDS ORDERED: BISA10SU PR (13:59)
[2020-12-09] MEDS ORDERED: MORP1SOL SL (13:59)
[2020-12-09] MEDS ORDERED: ATRO1OPD SL (13:59)
[2020-12-09] MEDS ORDERED: BENZ-18 PO (13:59)
[2020-12-09] MEDS ORDERED: ATIV1TAB7 PO (13:59)
[2020-12-09] MEDS ORDERED: TRAN1DIS4 TOP (13:59)
[2020-12-09] MEDS ORDERED: HYOS125TA PO (13:59)
[2020-12-09] MEDS ORDERED: SODIUM CHLORIDE 0.9% NASAL GEL 15GM (AYR) SCH (21:00)
== END 2020-12-09 19:45 | disposition hospice, home (50) | DRG 181 ==
LOC: M ED 10:17 → M ED INP 14:27 → M PCU 23:59 → M MSPAV 12-08 22:46
PROVIDERS: ADMIT Family Medicine; ATTEND Family Medicine
PROC: 0F9 Hepatobiliary System and Pancreas, Drainage (ICD-10-PCS; principal; 2020-12-04 14:58)
DX: C78.00 Secondary malignant neoplasm of unspecified lung (principal); R18.8 Other ascites; C78.7 Secondary malignant neoplasm of liver and intrahepatic bile duct; N17.9 Acute kidney failure, unspecified; C43.9 Malignant melanoma of skin, unspecified; I10 Essential (primary) hypertension; E78.5 Hyperlipidemia, unspecified; N40.0 Benign prostatic hyperplasia without lower urinary tract symptoms; Z92.21 Personal history of antineoplastic chemotherapy; Z51.5 Encounter for palliative care; Z79.899 Other long term (current) drug therapy; Z88.2 Allergy status to sulfonamides; Z88.8 Allergy status to other drugs, medicaments and biological substances; R00.0 Tachycardia, unspecified; E87.6 Hypokalemia; D64.9 Anemia, unspecified